=== PATIENT | male | born 1960 | race Caucasian/White ===

== ENCOUNTER → 2020-02-21 | Outpatient (CLI) | payer BC ==
[2020-02-21 17:35] LABS: HEMATOCRIT 42.6 % (42.0-52.0); HEMOGLOBIN 14.4 g/dL (13.5-18.0); MEAN CELL VOLUME 91 fl (78-100); MEAN CORPUSCULAR HEMOGLOBIN 31 pg (27-31); MEAN CORPUSCULAR HGB CONC 34 g/dL (33-37); MEAN PLATELET VOLUME 9.3 fl (7.4-10.4); PLATELET COUNT 172 K/mm3 (130-400); RED BLOOD COUNT 4.68 M/mm3 (4.20-5.60); RED CELL DISTRIBUTION WIDTH 13.2 % (11.5-14.5); WHITE BLOOD COUNT 5.1 K/mm3 (4.8-10.8)
[2020-02-21 17:40] LABS: LYMPHOCYTE 33 % (20-51); MONOCYTE 14 % (3-10); NEUTROPHILS 50 % (42-75)
[2020-02-21 17:45] LABS: ALBUMIN 4.3 g/dL (3.5-5.0)
[2020-02-21 17:46] LABS: CALCIUM 9.2 mg/dL (8.3-10.5)
[2020-02-21 17:48] LABS: TOTAL PROTEIN 7.4 g/dL (6.4-8.3)
[2020-02-21 17:50] LABS: TOTAL BILIRUBIN 0.5 mg/dL (0.2-1.2)
== END ==
LOC: LAB 17:20
PROVIDERS: Internal Medicine
DX: Z00.00 Encounter for general adult medical examination without abnormal findings (principal); Z12.5 Encounter for screening for malignant neoplasm of prostate

== ENCOUNTER → 2020-03-03 | Outpatient (CLI) | payer BC | LOC: LAB 16:41 | DX: Z12.11 Encounter for screening for malignant neoplasm of colon (principal) ==

== ENCOUNTER → 2021-03-22 | Outpatient (CLI) | payer BC ==
[2021-03-22 09:09] LABS: BASO # 0.02 K/mm3 (0.02-0.10); EOS # 0.07 K/mm3 (0.04-0.40); EOS % 1.6 % (0.0-4.0); HEMOGLOBIN 14.8 g/dL (13.5-18.0); LYMPH# 0.97 K/mm3 (1.50-4.00); MEAN CELL VOLUME 97 fl (78-100); MEAN CORPUSCULAR HEMOGLOBIN 32 pg (27-31); MEAN CORPUSCULAR HGB CONC 33 g/dL (33-37); MEAN PLATELET VOLUME 9.3 fl (7.4-10.4); MONO # 0.52 K/mm3 (0.20-0.80); NEU # 2.71 K/mm3 (1.40-6.50); PLATELET COUNT 154 K/mm3 (130-400); RED BLOOD COUNT 4.66 M/mm3 (4.20-5.60); RED CELL DISTRIBUTION WIDTH 12.7 % (11.5-14.5); WHITE BLOOD COUNT 4.3 K/mm3 (4.8-10.8)
[2021-03-22 09:22] LABS: POTASSIUM 4.5 mmol/L (3.5-5.1)
[2021-03-22 09:23] LABS: ALBUMIN 4.3 g/dL (3.5-5.0)
[2021-03-22 09:24] LABS: CALCIUM 9.9 mg/dL (8.3-10.5)
[2021-03-22 09:25] LABS: TOTAL PROTEIN 7.5 g/dL (6.4-8.3)
[2021-03-22 09:27] LABS: TOTAL BILIRUBIN 0.8 mg/dL (0.2-1.2)
== END ==
LOC: LAB 08:55
PROVIDERS: Internal Medicine
DX: Z00.00 Encounter for general adult medical examination without abnormal findings (principal); Z12.5 Encounter for screening for malignant neoplasm of prostate

== ENCOUNTER → 2023-04-03 | Outpatient (CLI) | payer BC ==
[2023-04-03 07:33] LABS: BASO # 0.03 K/mm3 (0.02-0.10); EOS % 2.7 % (0.0-4.0); HEMATOCRIT 41.1 % (42.0-52.0); HEMOGLOBIN 13.5 g/dL (13.5-18.0); LYMPH# 0.96 K/mm3 (1.50-4.00); MEAN CELL VOLUME 94 fl (78-100); MEAN CORPUSCULAR HEMOGLOBIN 31 pg (27-31); MEAN CORPUSCULAR HGB CONC 33 g/dL (33-37); MEAN PLATELET VOLUME 9.6 fl (7.4-10.4); MONO # 0.48 K/mm3 (0.20-0.80); NEU # 2.09 K/mm3 (1.40-6.50); PLATELET COUNT 165 K/mm3 (130-400); RED BLOOD COUNT 4.39 M/mm3 (4.20-5.60); RED CELL DISTRIBUTION WIDTH 13.6 % (11.5-14.5); WHITE BLOOD COUNT 3.7 K/mm3 (4.8-10.8)
[2023-04-03 07:56] LABS: ALBUMIN 4.3 g/dL (3.5-5.0)
[2023-04-03 07:57] LABS: CALCIUM 9.7 mg/dL (8.3-10.5)
[2023-04-03 07:58] LABS: TOTAL PROTEIN 6.9 g/dL (6.4-8.3)
[2023-04-03 08:00] LABS: TOTAL BILIRUBIN 0.8 mg/dL (0.2-1.2)
== END ==
LOC: LAB 07:21
PROVIDERS: Internal Medicine
DX: Z00.00 Encounter for general adult medical examination without abnormal findings (principal); Z12.5 Encounter for screening for malignant neoplasm of prostate; Z12.11 Encounter for screening for malignant neoplasm of colon

== ENCOUNTER → 2023-04-07 | Outpatient (CLI) | payer BC | LOC: LAB 11:46 | DX: Z00.00 Encounter for general adult medical examination without abnormal findings (principal); Z12.5 Encounter for screening for malignant neoplasm of prostate; Z12.11 Encounter for screening for malignant neoplasm of colon ==

== ENCOUNTER → 2023-04-11 | Outpatient (CLI) | payer BC | LOC: RAD 09:26 | DX: M25.511 Pain in right shoulder (principal) ==